=== PATIENT | female | born 1980 | race Caucasian/White ===

== ENCOUNTER 2020-03-09 17:09 | Inpatient (IN) | payer SELFPAY ==
[~2020-03-09] VITALS: Ht 165.1 cm; Wt 113.5 kg
--- NOTE | 2020-03-09 17:42 | EKG ---
[address] [address] Test Date: 2020-03-09 Test Time: 17:36:25 Pat Name: NOVEMBER KAVON Department: Room: Gender: F Owner: : 1980 Requested By: REINIER SAENZ Order Number: [id number] Reading MD: Measurements Intervals [place] Rate: 79 P: 27 NV: 156 QRS: 59 QRSD: 90 T: 60 QT: 364 QTc: 418 Interpretive Statements SINUS RHYTHM NORMAL ECG RI6.02 No previous ECG available for comparison
--- NOTE | 2020-03-09 18:18 | PHYS DOC ---
General Adult EDM: Chief Complaint: Chest pain HPI: HPI: 40-year-old female presents with chest pain. The patient states she has had right-sided chest wall pain for the last 6 days. It first started when she coughed really hard after waking up in the middle the night. Since that time, she has had persistent right upper chest pain that radiates to her right shoulder and sometimes up into her right jaw. She is never had pain like this before. She denies fall, trauma, or overuse. She cannot think of anything that would have caused this pain. It is a deep aching sensation. She went to urgent care 3 days ago and no significant findings time. Presents tonight because she continues to have moderate pain kqfz-adl-ilaciso medications are not helping. She is also feeling very short of breath now and this is concerning for her. No known COVID-19 exposures. She denies diaphoresis. She has a history of diabetes insulin dependent. Denies fever or chills. Review of Systems: Review of Systems: Constitutional: Denies fever or chills Eyes: Denies change in visual acuity HENT: Denies nasal congestion or sore throat Respiratory: shortness of breath Cardiovascular: Right chest wall pain GI: Denies abdominal pain, nausea, vomiting, bloody stools or diarrhea : Denies dysuria Musculoskeletal: Right shoulder pain Integument: Denies rash Neurologic: Denies headache, focal weakness or sensory changes Endocrine: Denies polyuria or polydipsia Lymphatic: Denies swollen glands Psychiatric: Denies depression or anxiety Heart Score: HEART Score for Chest Pain: HEART Score for Chest Pain Response (Comments) Value History Moderately Suspicious 1 ECG Normal 0 Age < 45 0 Risk Factors 1 or 2 Risk Factors 1 Troponin < Normal Limit 0 Total 2 Risk Factors: Risk Factors: DM, Current or recent (<one month) smoker, HTN, HLP, family history of CAD, obesity. Risk Scores: Score 0 - 3: 2.5% MACE over next 6 weeks - Discharge Home Score 4 - 6: 20.3% MACE over next 6 weeks - Admit for Clinical Observation Score 7 - 10: 72.7% MACE over next 6 weeks - Early Invasive Strategies Physical Exam: PE: Constitutional: Well developed, morbidly obese, well nourished, no acute distress, non-toxic appearance. [] HENT: Normocephalic, atraumatic, bilateral external ears normal, oropharynx dry, no oral exudates, nose normal. [] Eyes: PERRLA, EOMI, conjunctiva normal, no discharge. [] Neck: Normal range of motion, no tenderness, supple, no stridor. [] Cardiovascular: Heart rate regular rhythm, no murmur [] Lungs & Thorax: Bilateral breath sounds clear to auscultation. Tenderness with palpation of the right upper lateral chest wall. No skin changes or obvious injury. [] Abdomen: Bowel sounds normal, soft, no tenderness, no masses, no pulsatile masses. [] Skin: Warm, dry, no erythema, no rash. [] Back: No tenderness, no CVA tenderness. [] Extremities: No tenderness, no cyanosis, no clubbing, ROM intact, no edema. [] Neurologic: Alert and oriented X 3, normal motor function, normal sensory function, no focal deficits noted. [] Psychologic: Affect normal, judgement normal, mood normal. [] EKG: EKG: Sinus rhythm, normal axis, no ST elevations or depressions. [] Radiology/Procedures: Radiology/Procedures: [] Impressions: CHEST AP ONLY 03/09/2020 6:03 PM INDICATION: Chest pain COMPARISON: None available TECHNIQUE: Portable frontal view of the chest is provided. FINDINGS: The cardiomediastinal silhouette is within normal limits. Lungs are clear. Right suprahilar opacity most favors prominent vasculature. There are no significant pleural effusions. There is no pulmonary vascular congestion. No pneumothorax. No suspicious osseous abnormality. IMPRESSION: There is no acute cardiopulmonary process. Right suprahilar opacity most favors prominent vasculature. Electronically signed by: Bandar Herring MD (03/09/2020 7:58 PM) [facility] DICTATED AND SIGNED BY: BANDAR HERRING MD DATE: 03/09/201957 CC: KAVON CAREY DO; PCP,NO ~ EXAM: CT Chest without IV contrast INDICATION: Reason: abnormal x-ray, right chest pain / Spl. Instructions: / History: TECHNIQUE: Multi-detector row CT images were acquired from the thoracic inlet through the upper abdomen without the use of IV contrast. Sagittal and coronal images were acquired from the transaxial data. All CT scans performed at this facility utilize dose optimization techniques as appropriate to the exam, including the following: Automated exposure control and adjustment of the mA and/or KV according to patient size (this includes techniques or standardized protocols for targeted exams where dose is indication/reason for exam). COMPARISON: Chest x-ray of 03/09/2020 at 7:19 PM FINDINGS: The absence of IV contrast limits evaluation of soft tissue pathology. CARDIOVASCULAR: Unremarkable MEDIASTINUM & BRANDO: No adenopathy or masses. LUNGS: Right lung interlobular septal thickening is present along with patchy areas of subsegmental atelectasis. PLEURAL SPACE: Small right pleural effusion. No pneumothorax. Minimal atelectatic changes in the medial left costophrenic angle. OSSEOUS & SOFT TISSUE: There is gas between the right pectoralis major and minor muscles superficial to the anterior right second rib. There is associated soft tissue stranding both within the musculature and in the overlying fat. The distal right sternocleidomastoid muscle is asymmetrically thickened. Edema in the right axilla is also present. No acute or aggressive appearing osseous lesions identified. ABDOMEN: The visualized portions of the upper abdomen are unremarkable. IMPRESSION: 1. Gas-forming inflammatory process in the right pectoral musculature, involving the sternocleidomastoid muscle as well. Query myositis or necrotizing fasciitis. Recommend clinical correlation. 2. Asymmetric vascular congestion in the right lung with a small right pleural effusion. Pneumonitis or pneumonia with a small right parapneumonic effusion are differential considerations. FOR INTERNAL CODING PURPOSES Critical result: Findings discussed with KAVON CAREY at 03/09/2020 11:15 PM. RESULT CODE: (C) Course & Med Decision Making: Course & Med Decision Making Pertinent Labs and Imaging studies reviewed. (See chart for details) The patient has an elevated white count. She has other abnormal labs. See labs for more details. Her chest x-ray shows some right upper lobe abnormality thought to be congestion of the vasculature. I spoke with Dr. Brown and he has accepted the patient for admission. It seems very likely that she has an infection, though I am unsure of source. I have covered her with a gram of Rocephin IV. She is willing to be admitted for further management. I have ordered a chest CT without contrast due to her kidney function. [] Jacquie Disclaimer: Jacquie Disclaimer: This electronic medical record was generated, in whole or in part, using a voice recognition dictation system. Departure Departure: Impression: Primary Impression: Elevated serum creatinine Additional Impression: Cellulitis of chest wall Disposition: ADMITTED INPATIENT Admitting Physician: Sushil Brown Condition: STABLE Referrals: PCP,NO (PCP) Justification of Admission: Justification of Admission: Justification of Admission Dx: Yes Comments: chest wall infection, cellulitis KAVON CAREY DO Mar 09, 2020 18:18
[2020-03-09 18:39] LABS: BASO % 0 % (0-3); EOS # 0.1 x10^3/uL (0.0-0.7); EOS % 0 % (0-3); HEMATOCRIT 27.3 % (36.0-47.0); LYMPH # 0.9 x10^3/uL (1.0-4.8); LYMPH % 5 % (24-48); MEAN CORPUSCULAR HEMOGLOBIN 28 pg (25-35); MEAN CORPUSCULAR HGB CONC 33 g/dL (31-37); MEAN CORPUSCULAR VOLUME 83 fL (79-100); MONO % 5 % (0-9); NEUT # 17.1 x10^3uL (1.8-7.7); NEUT % 89 % (31-73); PLATELET COUNT 265 x10^3/uL (140-400); RED BLOOD COUNT 3.27 x10^6/uL (3.50-5.40); RED CELL DISTRIBUTION WIDTH 13.8 % (11.5-14.5); WHITE BLOOD COUNT 19.2 x10^3/uL (4.0-11.0)
[2020-03-09 18:45] LABS: CALCIUM 8.5 mg/dL (8.5-10.1); CREATININE 1.8 mg/dL (0.6-1.0); GFR 31.3; POTASSIUM 4.3 mmol/L (3.5-5.1)
[2020-03-09] MEDS ORDERED: HYDROcodone/APAP 5/325MG 1 TAB TABLET PO ONE ×2 (18:45→23:45)
[2020-03-09 18:51] LABS: ALBUMIN 2.3 g/dL (3.4-5.0); ALBUMIN/GLOBULIN RATIO 0.5 (1.0-1.7); TOTAL BILIRUBIN 0.4 mg/dL (0.2-1.0); TOTAL PROTEIN 7.1 g/dL (6.4-8.2)
[2020-03-09 18:55] LABS: % BANDS 7 % (0-9); % LYMPHS 2 % (24-48); % MONOS 5 % (0-10); % SEGS 86 % (35-66)
[2020-03-09 18:57] LABS: PLT ESTIMATE ADEQUATE (ADEQUATE); POLYCHROMASIA SLIGHT; TOXIC GRANULATION PRESENT; TOXIC VACUOLATION PRESENT
[2020-03-09] MEDS ORDERED: IV NORMAL SALINE 1,000ML 1,000 ML IV ONE (19:15)
--- NOTE | 2020-03-09 20:01 | RAD ---
CHEST AP ONLY 03/09/2020 6:03 PM INDICATION: Chest pain COMPARISON: None available TECHNIQUE: Portable frontal view of the chest is provided. FINDINGS: The cardiomediastinal silhouette is within normal limits. Lungs are clear. Right suprahilar opacity most favors prominent vasculature. There are no significant pleural effusions. There is no pulmonary vascular congestion. No pneumothorax. No suspicious osseous abnormality. IMPRESSION: There is no acute cardiopulmonary process. Right suprahilar opacity most favors prominent vasculature. Electronically signed by: Bri Herring MD (03/09/2020 7:58 PM) [facility]
[2020-03-09 20:43] LABS: BACTERIA,URINE 0 /HPF (0-FEW); BILIRUBIN,URINE NEG (NEG); CLARITY,URINE HAZY; COLOR,URINE YELLOW; GLUCOSE,URINE NEG (NEG); NITRITE,URINE NEG (NEG); RBC,URINE OCC /HPF (0-2); SQUAMOUS EPITHELIAL CELL,UR MOD /LPF
[2020-03-09] MEDS ORDERED: cefTRIAXone SODIUM 1 GM VIAL ONE (22:28)
[2020-03-09] MEDS ORDERED: IV NORMAL SALINE 50ML 50 ML ONE (22:28)
[2020-03-09] MEDS ORDERED: CONTRAST GIVEN MC PRN (22:30)
[2020-03-09] MEDS ORDERED: IOHEXOL 300 MG/ML 75 ML VIAL. IV ONE (23:00)
--- NOTE | 2020-03-09 23:19 | RAD ---
EXAM: CT Chest without IV contrast INDICATION: Reason: abnormal x-ray, right chest pain / Spl. Instructions: / History: TECHNIQUE: Multi-detector row CT images were acquired from the thoracic inlet through the upper abdomen without the use of IV contrast. Sagittal and coronal images were acquired from the transaxial data. All CT scans performed at this facility utilize dose optimization techniques as appropriate to the exam, including the following: Automated exposure control and adjustment of the mA and/or KV according to patient size (this includes techniques or standardized protocols for targeted exams where dose is indication/reason for exam). COMPARISON: Chest x-ray of 03/09/2020 at 7:19 PM FINDINGS: The absence of IV contrast limits evaluation of soft tissue pathology. CARDIOVASCULAR: Unremarkable MEDIASTINUM & BRANDO: No adenopathy or masses. LUNGS: Right lung interlobular septal thickening is present along with patchy areas of subsegmental atelectasis. PLEURAL SPACE: Small right pleural effusion. No pneumothorax. Minimal atelectatic changes in the medial left costophrenic angle. OSSEOUS & SOFT TISSUE: There is gas between the right pectoralis major and minor muscles superficial to the anterior right second rib. There is associated soft tissue stranding both within the musculature and in the overlying fat. The distal right sternocleidomastoid muscle is asymmetrically thickened. Edema in the right axilla is also present. No acute or aggressive appearing osseous lesions identified. ABDOMEN: The visualized portions of the upper abdomen are unremarkable. IMPRESSION: 1. Gas-forming inflammatory process in the right pectoral musculature, involving the sternocleidomastoid muscle as well. Query myositis or necrotizing fasciitis. Recommend clinical correlation. 2. Asymmetric vascular congestion in the right lung with a small right pleural effusion. Pneumonitis or pneumonia with a small right parapneumonic effusion are differential considerations. FOR INTERNAL CODING PURPOSES Critical result: Findings discussed with KAVON CAREY at 03/09/2020 11:15 PM. RESULT CODE: (C) Electronically signed by: Myron Aguilar MD (03/09/2020 11:15 PM) [facility] [place]
[2020-03-09] MEDS ORDERED: MORPHINE SULFATE 2 MG/ML DISP.SYRIN. IVP PRN (23:45)
[2020-03-09] MEDS ORDERED: ONDANSETRON PF 4 MG/2 ML VIAL. IVP PRN (23:45)
[2020-03-10 00:39] VITALS: BP 154/81
--- NOTE | 2020-03-10 01:29 | NUR ---
The patient, , 40 y/o, F admitted by WAYNE ZAIDI MD, was given written information regarding hospital policies, unit procedures and contact persons. Valuables were checked and . Pt pleasant and cooperative. VSS she is having pain of rt chest which meds given in the ER relieved somewhat. Wounds on bilateral heels photographed and redressed with form dressings.
[2020-03-10] MEDS ORDERED: SULF1TAB24 PO (02:28)
[2020-03-10] MEDS ORDERED: METO100T7 PO (02:28)
[2020-03-10] MEDS ORDERED: AMLO10TA8 PO (02:40)
[2020-03-10] MEDS ORDERED: NPH,100V5 SQ (02:40)
[2020-03-10] MEDS ORDERED: SITA1TAB11 PO (02:40)
[2020-03-10] MEDS ORDERED: LEVO150T PO (02:40)
[2020-03-10] MEDS ORDERED: IBUP800T19 PO (02:40)
[2020-03-10] MEDS ORDERED: LORA10TA55 PO (02:40)
[2020-03-10] MEDS ORDERED: LISI40TA PO (02:40)
[2020-03-10] MEDS ORDERED: LOPE1LIQ7 PO (02:40)
[2020-03-10] MEDS ORDERED: INSU100V11 IJ (02:40)
[2020-03-10] MEDS: MORPHINE SULFATE 4 MG/ML DISP.SYRIN. IV PRN ×4 (02:55→17:12)
--- NOTE | 2020-03-10 03:00 | NUR ---
PRN MS [address] Brown was informed of pts pain and order received.
--- NOTE | 2020-03-10 03:30 | NUR ---
Pt resting quietly now, appears to be asleep.
[2020-03-10 06:15] VITALS: BP 166/93
[2020-03-10] MEDS ORDERED: LOPERAMIDE 2 MG/15 ML ORAL SUSP. PO PRN (08:30)
[2020-03-10 08:44] LABS: HEMATOCRIT 25.3 % (36.0-47.0); HEMOGLOBIN 8.4 g/dL (12.0-15.5); RED BLOOD COUNT 3.02 x10^6/uL (3.50-5.40); RED CELL DISTRIBUTION WIDTH 14.1 % (11.5-14.5); WHITE BLOOD COUNT 18.8 x10^3/uL (4.0-11.0)
[2020-03-10] MEDS ORDERED: VANCOMYCIN PER PHARMACY MC PRN (08:45)
[2020-03-10] MEDS ORDERED: IBUPROFEN 800 MG TABLET. PO PRN (08:45)
[2020-03-10 08:46] LABS: CREATININE 1.7 mg/dL (0.6-1.0); GFR 33.5; POTASSIUM 4.3 mmol/L (3.5-5.1)
[2020-03-10] MEDS ORDERED: NON FORMULARY ITEM (Sitagliptin Phos/Metformin Hcl (Janumet 50-1,000 Mg Tablet) 1 EACH) PO SCH (09:00)
[2020-03-10] MEDS ORDERED: METOPROLOL TART IMMED RELEASE 50 MG TABLET PO SCH (09:00)
[2020-03-10] MEDS ORDERED: SMX/TMP 800/160MG 2TABLET STARTPACK. PO SCH (09:00)
[2020-03-10 09:15] LABS: CALCIUM 8.4 mg/dL (8.5-10.1)
[2020-03-10] MEDS ORDERED: LISINOPRIL 20 MG TABLET PO SCH (09:30)
[2020-03-10] MEDS ORDERED: LINAGLIPTIN 5 MG TABLET PO SCH (09:30)
[2020-03-10] MEDS ORDERED: CETIRIZINE HCL 10 MG TABLET PO SCH (09:30)
[2020-03-10] MEDS ORDERED: VANCOMYCIN 2 GM in IV NORMAL SALINE 500ML 500 ML IV ONE (09:45)
[2020-03-10] MEDS ORDERED: PIPERACILLIN/TAZOBACTAM 3.375 GM in IV NORMAL SALINE 50ML 50 ML IV SCH (09:45)
[2020-03-10] MEDS: INSULIN REGULAR 100 UNIT/ML 3ML VIAL. SQ SCH ×3 (10:04→17:11)
--- NOTE | 2020-03-10 13:08 | NUR ---
Pharmacy Vancomycin Dosing Note S:Consulted to monitor and dose vancomycin started 03/10/20. O:KAVONNOVEMBER A is a 40 year old F with chest wall infection/empiric antibiotics. Height: 5 feet, 5 inches Weight: 113.5 kg Dosing Weight: Actual Other Antibiotics: 3.375 MG ZOSYN Q6HRS 1 DOSE OF CEFTRIAXONE IN ER. PT WAS ON BACTRIM DS OUTPT FOR UTI. LABS: Last BUN: 32 Last Creatinine: 1.7 Creatinine Clearance: 55.8 Last WBC: 18.8 Microbiology: pending Vancomycin Dosing: Loading Dose: 2000 mg x1 Dosing Weight: Actual Target Trough: 15-20 A: Pt has infection of unclear source, likely in chest wall with poor kidney function that is improving. P: 1. Vancomycin 1750 mg IV q24h 2. Follow up Trough level on 03/12/20 at 1030 3. Pharmacy will continue to monitor, follow and adjust therapy as needed. KIKE RUCKER, 03/10/20 [id number]
[2020-03-10 13:53] LABS: CALCIUM 8.1 mg/dL (8.5-10.1); CREATININE 1.8 mg/dL (0.6-1.0); GFR 31.3; POTASSIUM 4.4 mmol/L (3.5-5.1)
--- NOTE | 2020-03-10 14:45 | SSS ---
ADMIT DATE: 03/10/2020 HISTORY OF PRESENT ILLNESS: The patient is a 40-year-old female patient who came to the Emergency Room complaining that she has right-sided chest wall pain for the last 6 days. It started when she coughed really hard after waking up in the middle of the night and since that time, she has had persistent right upper chest pain that radiates to her right neck, shoulder and sometimes into her right jaw. She has never had any pain like this before. She denies any fall, trauma or overuse. She cannot think of anything that would have caused this pain. It was a deep aching sensation. She went to an urgent care 3 days ago and no significant finding at that time. She presented to the Emergency Room of [facility] with moderate pain that wqni-mwv-gmpkuww medications are not helping. She also has feeling that she is very short of breath now and this is concerning for her. She has no known COVID-19 exposure. She denied any diaphoresis. She has multiple medical problems. She was extensively investigated in the Emergency Room. Her lab work showed a white cell count of 19,000, hemoglobin 9, hematocrit 27 with normal platelet count. Her chemistry showed that she has hyponatremia and impaired kidney function. Her CT scan of the chest showed that the patient has gas forming inflammatory process in the right pectoral musculature involving the sternocleidomastoid muscle as well as questionable myositis or necrotizing fasciitis. She has a symmetric vascular congestion in the right lung with a small right pleural effusion. Pneumonitis or pneumonia with a small right side parapneumonic effusion are differential consideration. The patient was given a gram of Rocephin and was admitted for further evaluation and treatment. I did actually change her antibiotic coverage to vancomycin as well as Zosyn and contacted the nursing [employer]ending enterprises supervisor at [facility] to arrange for her to be transferred there to consult the Infectious Disease specialist as well as the surgical team and perhaps also the psych assistant. 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 She apparently has diabetic retinopathy, nephropathy and neuropathy. She is known to have hypertension, hyperlipidemia, hypothyroidism, polycystic ovary syndrome and bronchial asthma, although she has outgrown it. PAST SURGICAL HISTORY: Significant for back surgery at L4, L5, S1 with screws and rods. 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 ALLERGIES: She has no known drug allergies. MEDICATIONS: She is currently on the following medications: She is on loratadine 10 mg once a day. She is on metoprolol tartrate 100 mg twice a day, amlodipine 10 mg once a day, lisinopril 40 mg once a day, ibuprofen 800 mg every 8 hours, loperamide 1 mg every 4 hours as needed, sitagliptin/metformin, Janumet one tablet once a day. She is on Regular insulin 46 units at bedtime and Novolin N 22 units before meals, levothyroxine sodium for Synthroid 150 mcg once a day. FAMILY HISTORY: She has 2 older brothers. Her older brother has alcoholic liver cirrhosis, second brother is healthy. Her father is still alive at the age of 72 and is known to have COPD. Her mother at age of 55 secondary to lung cancer. SOCIAL HISTORY: She is single, never , has no children. She never smoked, does not drink alcohol or use any recreational drugs. She is currently unemployed. REVIEW OF SYSTEMS: The patient does have what seemed to be diabetic retinopathy, but denied any cataract or glaucoma. Denied any earache, tinnitus or sensorineural deafness. Denied any nosebleeds, stuffy nose or postnasal drip. Denied any sore throat, sore tongue, toothache, hoarseness of voice or difficulty swallowing. Denied any nausea, vomiting, diarrhea or constipation. Denied any hematemesis, melena, or hematochezia. Denied any dysuria, frequency or hematuria. He did obviously complain of chest pain on the right side of the chest, but denied any orthopnea or paroxysmal nocturnal dyspnea. Denied any chills, rigors, or fever. Denied any dizziness, lightheadedness, or vertigo. PHYSICAL EXAMINATION: GENERAL: On arrival to the Emergency Room, she was clearly slightly tachypneic, pale. Not jaundiced, cyanosis or thyromegaly. No jugular venous distension. No limb edema. VITAL SIGNS: Her heart rate was 90, blood pressure 168/87, her temperature was 99.7, respiratory rate was 24, and oxygen saturation was 98% on room air. HEAD, EYES, EARS, NOSE AND THROAT: Showed normocephalic, atraumatic. NECK: Supple. HEART: Showed normal first and second heart sounds. No gallop, rub or murmur. CHEST: Showed central trachea, equal bilateral expansion, air entry, vesicular sounds. No crepitation or rhonchi. She has marked tenderness on the right side of the chest wall in the right infraclavicular area, right shoulder and right-sided neck. ABDOMEN: Distended, soft, nontender. No guarding or rigidity. No organomegaly. All hernial orifice intact. Bowel sounds normal. NEUROLOGIC: She is awake, alert, responding appropriately. All her cranial nerves are intact. EXTREMITIES: She moves extremities without difficulty. LABORATORY DATA: Her lab work on arrival showed a white cell count of 19,000, hemoglobin 9, hematocrit 27, MCV 83 and platelet count of 265,000 with normal manual differential. Her chemistry showed serum sodium of 129, potassium 4.3, chloride 97, bicarbonate 20, anion gap of 12, BUN 35, creatinine 1.8, estimated GFR was 31 mL per minute. Her glucose 151. Lactic acid was only 1.2, calcium was 8.5. Total bilirubin, AST, ALT were normal. Alkaline phosphatase was elevated. Her total protein was 7.1, albumin was 2.3. Her urinalysis showed the urine was yellow, hazy with a pH of 5.5, specific gravity of 1.015. The urine was negative for protein, glucose, ketones, blood, nitrite and leukocyte esterase, and 5-10 wbc's and very few bacteria. Her chest x-ray showed there is no acute cardiopulmonary process. Right suprahilar opacity, ____ prominent vasculature; however, CT scan of the chest without contrast showed that the mediastinum and sukhdeep showed no adenopathy or masses. Lungs, right lung interlobular septal thickening is present along with patchy areas of subsegmental atelectasis. Pleural space, she has small right sided pleural effusion, no pneumothorax. Minimal atelectatic changes in the medial left costophrenic angle. Osseous and soft tissue, there is gas between the right pectoralis major and minor muscles, superficial to the anterior right second rib. There is associated soft tissue stranding both within the musculature and overlying fat. The distal right sternoclavicular muscle is symmetrically thickened. Edema in the right axilla is also present. No acute or aggressive appearing osseous lesion identified. The visualized portion of the upper abdomen are unremarkable with the impression that the patient has gas forming inflammatory process in the right pectoral musculature involving the sternocleidomastoid muscle as well with questionable myositis versus necrotizing fasciitis. She does have also a symmetric vascular congestion in the right lung with a small right pleural effusion. Pneumonitis or pneumonia with a small right-sided parapneumonic effusion are differential consideration. I did change her antibiotic to vancomycin and Zosyn as the possibility of necrotizing fasciitis was raised by the radiologist report. The patient has multiple other medical problems including: A. Type 2 diabetes mellitus. B. Hypertension. C. Hyperlipidemia. D. Hypothyroidism. E. Polycystic ovary syndrome. She also has hyponatremia and acute on chronic kidney injury versus chronic kidney injury. My plan is to obviously discontinue her metformin and hold her lisinopril and discontinue the ibuprofen given her impaired kidney function. We will transfer the patient to [facility] for further evaluation and to consult the Infectious Disease specialist, the surgical team as well as the psych assistant. WAYNE ZAIDI MD DR: ROBBIE/vicky JOB#: [id number] / [id number]
[2020-03-10 15:27] VITALS: BP 169/76
[2020-03-10] MEDS ORDERED: PIPERACILLIN/TAZOBACTAM 2.25 GM in IV NORMAL SALINE 50ML 50 ML IV SCH (15:45)
[2020-03-10 19:14] VITALS: BP 185/99
[2020-03-10] MEDS ORDERED: amLODIPine BESYLATE 10 MG TABLET PO SCH (21:00)
[2020-03-10] MEDS ORDERED: INSULIN GLARGINE SYRINGE. SQ SCH (21:00)
--- NOTE | 2020-03-10 22:06 | NUR ---
pt was transferred [place] [facility] [place] [facility] at 1740. pts vitals 185/99, 92 pulse, 20 resp, temp 101.0, o2 sat 92% or 2 Liters. pt was lying comfortably in bed before EMS arrived on floor. pt received morphine 2 hrs before transfer was not ellagab Addendum: 03/10/20 at 4304 by CALLI MENDOZA RN RN pt transfer to [facility] via [facility] eligible for another dose of morphine. All paperwork and pts belonging went with pt to [facility].
[2020-03-11] MEDS ORDERED: LEVOTHYROXINE 150 MCG TABLET PO SCH (07:30)
[2020-03-11] MEDS ORDERED: metFORMIN 500 MG TABLET PO SCH (09:00)
[2020-03-11] MEDS ORDERED: VANCOMYCIN 1.75 GM in IV NORMAL SALINE 500ML 500 ML IV SCH (11:00)
== END 2020-03-10 19:40 | disposition short-term general hospital (02) | DRG 682 ==
LOC: ER 17:09 → 1 SOUTH 03-10 00:18
PROVIDERS: ADMIT Internal Medicine; ATTEND Internal Medicine
DX: N17.9 Acute kidney failure, unspecified (principal); J18.9 Pneumonia, unspecified organism; M72.6 Necrotizing fasciitis; L03.313 Cellulitis of chest wall; E87.1 Hypo-osmolality and hyponatremia; J91.8 Pleural effusion in other conditions classified elsewhere; E03.9 Hypothyroidism, unspecified; E11.22 Type 2 diabetes mellitus with diabetic chronic kidney disease; E11.21 Type 2 diabetes mellitus with diabetic nephropathy; I12.9 Hypertensive chronic kidney disease with stage 1 through stage 4 chronic kidney disease, or unspecified chronic kidney disease; N18.9 Chronic kidney disease, unspecified; E78.5 Hyperlipidemia, unspecified; Z20.828 Contact with and (suspected) exposure to other viral communicable diseases; J45.909 Unspecified asthma, uncomplicated; Z56.0 Unemployment, unspecified; Z79.4 Long term (current) use of insulin; Z80.1 Family history of malignant neoplasm of trachea, bronchus and lung; Z82.5 Family history of asthma and other chronic lower respiratory diseases
CPT/HCPCS: 36415; 71045; 71250; 80048; 80053; 81001; 83605; 84484; 84702; 85007; 85025; 85027; 87040; 87086; 93005; J0696; J1815; J2270; J2543; J3370; J7040; J7030; U0003-CS

== ENCOUNTER 2020-09-19 13:57 | Emergency (ER) | payer MEDICARE, OTHER ==
[~2020-09-19] VITALS: Ht 165.1 cm; Wt 113.6 kg
[~2020-09-19 13:57] MED LIST: AMLO-187 PO; IBUP800T19 PO; INSU100V11 IJ; LEVO150T PO; LISI40TA6 PO; LOPE1LIQ7 PO; LORA-52 PO; METO100T7 PO; NPH,100V5 SQ; SITA1TAB11 PO; SULF1TAB24 PO
[2020-09-19] MEDS ORDERED: ONDANSETRON PF 4 MG/2 ML VIAL. IVP ONE (14:30)
[2020-09-19] MEDS ORDERED: IV NORMAL SALINE 1,000ML 1,000 ML IV ONE (14:30)
[2020-09-19] MEDS ORDERED: FAMOTIDINE 20 MG/2 ML VIAL IVP ONE (14:30)
--- NOTE | 2020-09-19 14:40 | PHYS DOC ---
Past History Past Medical History: Diabetes, High Cholesterol, Hypertension, Hypothyroid, Pneumonia, URI, Other Additional Past Medical Histor: PCOS, chronic back pain (FRANCISCO GUTIERREZ APRN) Past Surgical History: Other Additional Past Surgical Histo: back surg L4 L5 S1. Left foot toe amp, right leg MRSA infection SX, Past Surgical History bilateral heel ulcers (FRANCISCO GUTIERREZ APRN) Smoking: Non-smoker Alcohol Use: None Drug Use: None ( ) (FRANCISCO GUTIERREZ APRN) General Adult EDM: Chief Complaint: ABDOMINAL PAIN HPI: HPI: Patient is a 40-year-old female with extensive medical history that presents to the emergency room with complaints of nausea, vomiting, and upper abdominal pain for the last 24 hours. Patient states she has vomited at least 10 times, she denies any blood in her emesis. She denies any known COVID-19 exposure. The patient states she has not been checking her blood sugar or taking her diabetes medication with the vomiting. She denies any diarrhea, chest pain, palpitations, fever, cough, body aches, fatigue, shortness of breath, dysuria, hematuria, or increased urinary frequency. Patient reports that the abdominal pain does not radiate through to her back. Patient currently rates her pain a 10 out of 10 on the pain scale, she denies any alleviating or exacerbating factors, she reports that the pain is worse with palpation and vomiting. (FRANCISCO GUTIERREZ APRN) Review of Systems: Review of Systems: Complete ROS is negative unless otherwise noted in HPI. (FRANCISCO GUTIERREZ APRN) Current Medications: Current Meds: Current Medications Medications (Trade) Dose Ordered Sig/Mahendra Start Time Stop Time Status Last Admin Dose Admin Famotidine (Pepcid Vial) 20 mg 1X ONCE 09/19/20 14:30 09/19/20 14:31 DC Fentanyl Citrate (Fentanyl 2ml Vial) 50 mcg 1X ONCE 09/19/20 14:30 09/19/20 14:31 DC Ondansetron HCl (Zofran) 4 mg 1X ONCE 09/19/20 14:30 09/19/20 14:31 DC Sodium Chloride 1,000 ml @ 1,000 mls/hr 1X ONCE 09/19/20 14:30 09/19/20 15:29 (FRANCISCO GUTIERREZ APRN) Allergies: Allergies: Allergies Coded Allergies Type Severity Reaction Last Updated Verified No Known Drug Allergies 09/19/20 No (FRANCISCO GUTIERREZ APRN) Physical Exam: PE: See Above Constitutional: Well developed, well nourished, no acute distress, non-toxic appearance, obese. [] HENT: Normocephalic, atraumatic, bilateral external ears normal, nose normal. [] Eyes: PERRLA, EOMI, conjunctiva normal, no discharge. [] Neck: Normal range of motion, no stridor. [] Cardiovascular:Heart rate regular rhythm Lungs & Thorax: Respirations even and unlabored, no retractions, no respiratory distress Abdomen: soft, right upper quadrant and epigastric tenderness to palpation, no rebound tenderness, no guarding, no palpable mass, abdomen is otherwise soft and nontender Skin: Warm, dry, no erythema, no rash. [] Extremities: No cyanosis, ROM intact, no edema. [] Neurologic: Alert and oriented X 3, no focal deficits noted. [] Psychologic: Affect normal, judgement normal, mood normal. [] (FRANCISCO GUTIERREZ APRN) Current Patient Data: Labs: Laboratory Tests Test 09/19/20 14:24 Glucose (Fingerstick) 347 mg/dL (70-99) H Vital Signs: Vital Signs Date Time Temp Pulse Resp B/P (MAP) Pulse Ox O2 Delivery O2 Flow Rate FiO2 09/19/20 14:14 97.8 114 121/77 (92) 97 (FRANCISCO GUTIERREZ APRN) EKG: EKG: [] (FRANCISCO GUTIERREZ APRN) Radiology/Procedures: Radiology/Procedures: PROCEDURE: ABDOMEN LTD Exam performed: Right upper quadrant abdominal pain. HISTORY: Right upper quadrant epigastric pain. DATE OF SERVICE: 09/19/2020. COMPARISON: CT chest from March 09, 2020 TECHNIQUE: Real-time grayscale imaging of the right upper abdomen is performed and images are obtained. FINDINGS: The study is very limited due to patient's large body habitus and limited scanning due to extreme pain. Diffuse hepatic steatosis. The gallbladder is markedly distended containing calculi. Pericholecystic fluid and positive sonographic Partida's sign is present. The pancreas, right kidney, IVC and aorta are poorly visualized due to overlying bowel gas. IMPRESSION: Limited exam. Cholelithiasis with sonographic findings consistent with acute cholecystitis. [] (FRANCISCO GUTIERREZ APRN) Heart Score: Risk Factors: Risk Factors: DM, Current or recent (<one month) smoker, HTN, HLP, family history of CAD, obesity. Risk Scores: Score 0 - 3: 2.5% MACE over next 6 weeks - Discharge Home Score 4 - 6: 20.3% MACE over next 6 weeks - Admit for Clinical Observation Score 7 - 10: 72.7% MACE over next 6 weeks - Early Invasive Strategies (FRANCISCO GUTIERREZ APRN) Course & Med Decision Making: Course & Med Decision Making Pertinent Labs and Imaging studies reviewed. (See chart for details) 1601- I spoke with Dr. Brown and informed of patient that needs to be tx to [facility] for acute cholecystitis. Labs and US results discussed. Advised of medications given, Dr. Kaur has been paged for surgery. Dr. Brown will admit pt to [facility]. 1602- I spoke with Dr. Kaur and advised of pt transfer with acute cholecystitis, informed that Dr. Brown is accepting physician. [] (FRANCISCO GUTIERREZ APRN) Dragon Disclaimer: Dragon Disclaimer: This electronic medical record was generated, in whole or in part, using a voice recognition dictation system. (FRANCISCO GUTIERREZ APRN) Departure Departure: Impression: Primary Impression: Acute cholecystitis Disposition: 02 DC/TRF OTHER SHORT TERM HOS Condition: STABLE Referrals: NON,STAFF (PCP) Attending Signature Attending Signature I have reviewed the PA/FILE SYSTEM INSTALLER's note and plan of care. I was available for consultation as needed during the patient's visit in the emergency department. I agree with the clinical impression, plan, and disposition. (REINIER SAENZ DO) FRANCISCO GUTIERREZ APRN Sep 19, 2020 14:40 REINIER SAENZ DO Sep 19, 2020 23:09
[2020-09-19 15:17] LABS: BASO % 0 % (0-3); EOS % 0 % (0-3); HEMATOCRIT 35.6 % (36.0-47.0); HEMOGLOBIN 11.8 g/dL (12.0-15.5); LYMPH # 0.9 x10^3/uL (1.0-4.8); LYMPH % 5 % (24-48); MEAN CORPUSCULAR HEMOGLOBIN 27 pg (25-35); MEAN CORPUSCULAR HGB CONC 33 g/dL (31-37); MEAN CORPUSCULAR VOLUME 81 fL (79-100); MONO # 1.1 x10^3/uL (0.0-1.1); MONO % 6 % (0-9); NEUT # 17.5 x10^3uL (1.8-7.7); NEUT % 90 % (31-73); PLATELET COUNT 284 x10^3/uL (140-400); RED CELL DISTRIBUTION WIDTH 14.8 % (11.5-14.5); WHITE BLOOD COUNT 19.5 x10^3/uL (4.0-11.0)
[2020-09-19 15:30] LABS: CALCIUM 9.3 mg/dL (8.5-10.1); CREATININE 1.4 mg/dL (0.6-1.0); GFR 41.9; POTASSIUM 4.6 mmol/L (3.5-5.1)
[2020-09-19] MEDS ORDERED: HYDROmorphone PF 1 MG/ML DISP.SYRIN IVP ONE ×2 (15:30→16:15)
[2020-09-19 15:37] LABS: ALBUMIN 3.2 g/dL (3.4-5.0); ALBUMIN/GLOBULIN RATIO 0.6 (1.0-1.7); TOTAL BILIRUBIN 0.8 mg/dL (0.2-1.0); TOTAL PROTEIN 8.3 g/dL (6.4-8.2)
[2020-09-19] MEDS ORDERED: HYDROmorphone PF 2 MG/ML VIAL ONE (15:41)
[2020-09-19] MEDS ORDERED: PIPERACILLIN/TAZOBACTAM 3.375 GM in IV NORMAL SALINE 50ML 50 ML IV ONE (15:45)
--- NOTE | 2020-09-19 15:50 | RAD ---
Exam performed: Right upper quadrant abdominal pain. HISTORY: Right upper quadrant epigastric pain. DATE OF SERVICE: 09/19/2020. COMPARISON: CT chest from March 09, 2020 TECHNIQUE: Real-time grayscale imaging of the right upper abdomen is performed and images are obtained. FINDINGS: The study is very limited due to patient's large body habitus and limited scanning due to extreme amari n. Diffuse hepatic steatosis. The gallbladder is markedly distended containing calculi. Pericholecystic fluid and positive sonographic Partida's sign is present. The pancreas, right kidney, IVC and aorta ar e poorly visualized due to overlying bowel gas. IMPRESSION: Limited exam. Cholelithiasis with sonographic findings consistent with acute cholecystitis. Electronically signed by: Sobeida Pandya MD (09/19/2020 3:48 PM) [id number]
[2020-09-19] MEDS ORDERED: IV NORMAL SALINE 50ML 50 ML ONE (16:23)
[2020-09-19] MEDS ORDERED: PIPERACILLIN/TAZOBACTAM 3.375 GM VIAL IV ONE (16:23)
[2020-09-19 16:54] LABS: PREG TEST PT QUAL NEGATIVE (NEG)
[2020-09-19 17:35] LABS: % BANDS 3 % (0-9); % LYMPHS 2 % (24-48); % MONOS 4 % (0-10); % SEGS 91 % (35-66); PLT ESTIMATE ADEQUATE (ADEQUATE); TOXIC GRANULATION MOD
[2020-09-19 18:26] VITALS: BP 166/92
--- NOTE | 2020-09-23 09:52 | NUR ---
IP: notified IP at [facility] of COVID result.
== END 2020-09-19 18:27 | disposition short-term general hospital (02) ==
LOC: ER 13:57
DX: K81.0 Acute cholecystitis (principal); R11.2 Nausea with vomiting, unspecified; E11.9 Type 2 diabetes mellitus without complications; E78.00 Pure hypercholesterolemia, unspecified; I10 Essential (primary) hypertension; E03.9 Hypothyroidism, unspecified; G89.29 Other chronic pain; E28.2 Polycystic ovarian syndrome; Z20.822 Contact with and (suspected) exposure to COVID-19
CPT/HCPCS: 36415; 76705; 80053; 82947; 83690; 83735; 84703; 85007; 85025; 87426; 96361; 96365; 96375; 96376; 99285; C9803; J1170; J2405; J2543; J3010; J3490; J7030; U0003

== ENCOUNTER 2021-11-05 16:52 | Emergency (ER) | payer MEDICARE, OTHER ==
[~2021-11-05] VITALS: Ht 165.1 cm; Wt 113.6 kg
[2021-11-05] MEDS ORDERED: IV NORMAL SALINE 1,000ML 1,000 ML IV SCH (17:15)
--- NOTE | 2021-11-05 17:21 | PHYS DOC ---
Past History Past Medical History: Diabetes, High Cholesterol, Hypertension, Hypothyroid, Pneumonia, URI, Other Additional Past Medical Histor: PCOS, chronic back pain (AVI VANCE APRN) Past Surgical History: Other Additional Past Surgical Histo: back surg L4 L5 S1. Left foot toe amp, right leg MRSA infection SX, (AVI VANCE APRN) Smoking: Non-smoker Alcohol Use: None Drug Use: None (AVI VANCE APRN) General Adult EDM: Chief Complaint: FOOT INJURY PAIN HPI: HPI: Patient is a 41-year-old female who presents to the emergency department for diabetic ulcer to her right foot. She reports that it started out as a blister 3 weeks weeks ago and has gotten worse over the last week. Patient reports a history of diabetic ulcers and has had a toe amputated on her left foot. She reports she has a history of group B strep infection in her wounds. She reports that her diabetes is well controlled her last A1c was 5.4. Patient denies any fevers, nausea, vomiting, chest pain. She is reporting body aches, fatigue and feels short of breath. She rates her pain 4 out of 10. No treatment prior to arrival. (AVI VANCE APRN) Review of Systems: Review of Systems: Constitutional: See HPI Respiratory: See HPI Cardiovascular: See HPI GI: See HPI Musculoskeletal: See HPI Integument: See HPI Neurologic: Reports a history of neuropathy (AVI VANCE APRN) Current Medications: Current Meds: Current Medications Medications (Trade) Dose Ordered Sig/Mahendra Start Time Stop Time Status Last Admin Dose Admin Sodium Chloride 1,000 ml @ 1,000 mls/hr Q1H 11/05/21 17:15 11/05/21 18:14 UNV (AVI VANCE APRN) Allergies: Allergies: Allergies Coded Allergies Type Severity Reaction Last Updated Verified No Known Drug Allergies 09/19/20 No (AVI VANCE APRN) Physical Exam: PE: Constitutional: Well developed, well nourished, no acute distress, non-toxic appearance. [] HENT: Normocephalic, atraumatic, bilateral external ears normal, oropharynx moist, no oral exudates, nose normal. [] Eyes: PERRL, EOMI, conjunctiva normal, no discharge. [] Neck: Normal range of motion, no tenderness, supple, no stridor. [] Cardiovascular:Heart rate regular rhythm, no murmur [] Lungs & Thorax: Bilateral breath sounds clear to auscultation [] Abdomen: Bowel sounds normal, soft, no tenderness, no masses, no pulsatile masses. [] Skin: Warm, dry, no erythema, no rash. [] Back: Normal range of motion Extremities: No tenderness, no cyanosis, no clubbing, ROM intact, no edema. [] Right foot: 4 cm circular necrotic diabetic foot ulcer with erythema and warmth noted to right dorsal plantar aspect of foot proximal to fifth toe with small amount of skin sloughing, foul odor, neuro intact, range of motion intact, grade2-3 Neurologic: Alert and oriented X 3, normal motor function, normal sensory function, no focal deficits noted. [] Psychologic: Affect normal, judgement normal, mood normal. [] (AVI VANCE APRN) Current Patient Data: Vital Signs: Vital Signs Date Time Temp Pulse Resp B/P (MAP) Pulse Ox O2 Delivery O2 Flow Rate FiO2 11/05/21 17:01 97.7 110 16 141/72 (95) 100 Room Air (AVI VANCE APRN) EKG: EKG: [] (AVI VANCE APRN) Radiology/Procedures: Radiology/Procedures: []PROCEDURE: FOOT RIGHT 3V Exam: Right foot 3 views INDICATION: Diabetic ulcer TECHNIQUE: Frontal, lateral and oblique views of the right foot Comparisons: None FINDINGS: Diffuse osteopenia. Diffuse soft tissue swelling particularly at the fifth digit. No acute or healed fractures. Joint spaces are well-maintained. IMPRESSION: Soft tissue swelling at the likely at the fifth digit without underlying osseous abnormality identified. Electronically signed by: Aleida Chan MD (11/05/2021 5:29 PM) [facility] DICTATED AND SIGNED BY: ALEIDA CHAN MD DATE: 11/05/211724 CC: AVI VANCE APRN; NON,STAFF ~ DURE: PORTABLE CHEST 1V EXAMINATION: XR CHEST 1V CLINICAL HISTORY: Shortness of breath. EXAM DATE/TIME: 11/05/2021 5:33 PM COMPARISON: 03/09/2020 FINDINGS: Lines, Tubes, and Devices: None. Cardiomediastinal Silhouette: Within normal limits. Lungs and Pleura: Pulmonary hypoexpansion without evidence of focal airspace consolidation or pleural effusion. Pulmonary vasculature unremarkable. Bones and Soft Tissues: Degenerative changes in the thoracic spine. IMPRESSION: No evidence of acute cardiopulmonary abnormality. Electronically signed by: Prashant Kerns DO (11/05/2021 5:35 PM) [facility] DICTATED AND SIGNED BY: PRASHANT KERNS DO DATE: 11/05/211733 CC: AVI VANCE APRN; NON,STAFF ~ (AVI VANCE APRN) Heart Score: C/O Chest Pain: No Risk Factors: Risk Factors: DM, Current or recent (<one month) smoker, HTN, HLP, family history of CAD, obesity. Risk Scores: Score 0 - 3: 2.5% MACE over next 6 weeks - Discharge Home Score 4 - 6: 20.3% MACE over next 6 weeks - Admit for Clinical Observation Score 7 - 10: 72.7% MACE over next 6 weeks - Early Invasive Strategies (AVI VANCE APRN) Course & Med Decision Making: Course & Med Decision Making Pertinent Labs and Imaging studies reviewed. (See chart for details) [] Patient resents to the emergency department for a diabetic foot ulcer to her right foot. Patient has a history of diabetic foot ulcers and has to have had her toe amputated previously. She reports that her infection was group B strep. Work-up in the ER consisted of blood work including ESR, lactic acid and blood cultures. Patient had an x-ray of her right foot to determine if osteomyelitis was present. Patient is reporting shortness of breath and she reports that whenever she had her previous foot ulcer that had group B strep and she also had pneumonia. Therefore, a chest x-ray was performed. Patient had no leukocytosis noted, anemia noted-consistent with previous lab findings, BG 143, no elevated anion gap, lactic acid 1.9, creat 1.4-consistent with previous findings, ESR pending, CRP 95.5. CXR negative. Xray of foot shows soft tissue swelling without any underlying osseous abnormality. Patient will need to be admitted for IV abx as she has an infected, necrotic foot ulcer with hx of osteomyelitis and toe amputation. I discussed patients case with Dr. Canales who advised to transfer to [facility] for surgery consultation. I discussed patients case with Dr. Felix who agreed to admit the patient under his services for an infected diabetic foot ulcer. IV abx ordered for patient, surgery consultation placed. I discussed these findings and care plan with patient and she is agreeable to transfer/admission. 1920. (AVI VANCE APRN) Dragon Disclaimer: Dragon Disclaimer: This electronic medical record was generated, in whole or in part, using a voice recognition dictation system. (AVI VANCE APRN) Departure Departure: Impression: Primary Impression: Diabetic foot ulcer Qualified Codes: E11.621 - Type 2 diabetes mellitus with foot ulcer; L97.519 - Non-pressure chronic ulcer of other part of right foot with unspecified severity Disposition: 02 SHORT TERM HOSPITAL Condition: GOOD Referrals: NON,STAFF (PCP) Dragon Disclaimer This chart was dictated in whole or in part using Voice Recognition software in a busy, high-work load, and often noisy Emergency Department environment. It may contain unintended and wholly unrecognized errors or omissions. (ISAIAH COTTRELL MD) Attending Signature Attending Signature I have participated in the care of this patient and I have reviewed and agree with all pertinent clinical information above including history, exam, and recommendations. (ISAIAH COTTRELL MD) AVI VANCE APRN Nov 05, 2021 17:21 ISAIAH COTTRELL MD Nov 07, 2021 04:12
--- NOTE | 2021-11-05 17:31 | RAD ---
Exam: Right foot 3 views INDICATION: Diabetic ulcer TECHNIQUE: Frontal, lateral and oblique views of the right foot Comparisons: None FINDINGS: Diffuse osteopenia. Diffuse soft tissue swelling particularly at the fifth digit. No acute or healed fractures. Joint spaces are well-maintained. IMPRESSION: Soft tissue swelling at the likely at the fifth digit without underlying osseous abnormality identifi ed. Electronically signed by: Aleida Dickey MD (11/05/2021 5:29 PM) CORRINE
--- NOTE | 2021-11-05 17:37 | RAD ---
EXAMINATION: XR CHEST 1V CLINICAL HISTORY: Shortness of breath. EXAM DATE/TIME: 11/05/2021 5:33 PM COMPARISON: 03/09/2020 FINDINGS: Lines, Tubes, and Devices: None. Cardiomediastinal Silhouette: Within normal limits. Lungs and Pleura: Pulmonary hypoexpansion without evidence of focal airspace consolidation or pleural effusion. Pulmonary vasculature unremarkable. Bones and Soft Tissues: Degenerative changes in the thoracic spine. IMPRESSION: No evidence of acute cardiopulmonary abnormality. Electronically signed by: Prashant Pisano DO (11/05/2021 5:35 PM) VIV
[2021-11-05 17:57] LABS: BASO # 0.1 x10^3/uL (0.0-0.2); BASO % 1 % (0-3); EOS # 0.1 x10^3/uL (0.0-0.7); EOS % 1 % (0-3); HEMATOCRIT 30.2 % (36.0-47.0); HEMOGLOBIN 9.9 g/dL (12.0-15.5); LYMPH # 0.8 x10^3/uL (1.0-4.8); LYMPH % 9 % (24-48); MEAN CORPUSCULAR HEMOGLOBIN 29 pg (25-35); MEAN CORPUSCULAR HGB CONC 33 g/dL (31-37); MEAN CORPUSCULAR VOLUME 87 fL (79-100); MONO # 0.6 x10^3/uL (0.0-1.1); MONO % 7 % (0-9); NEUT # 7.5 x10^3uL (1.8-7.7); NEUT % 82 % (31-73); PLATELET COUNT 232 x10^3/uL (140-400); RED BLOOD COUNT 3.47 x10^6/uL (3.50-5.40); RED CELL DISTRIBUTION WIDTH 13.3 % (11.5-14.5); WHITE BLOOD COUNT 9.1 x10^3/uL (4.0-11.0)
[2021-11-05 18:06] LABS: CALCIUM 8.9 mg/dL (8.5-10.1); CREATININE 1.4 mg/dL (0.6-1.0); GFR 41.6; POTASSIUM 4.9 mmol/L (3.5-5.1)
[2021-11-05 18:19] LABS: ALBUMIN 3.3 g/dL (3.4-5.0); ALBUMIN/GLOBULIN RATIO 0.7 (1.0-1.7); TOTAL BILIRUBIN 0.3 mg/dL (0.2-1.0); TOTAL PROTEIN 7.9 g/dL (6.4-8.2)
[2021-11-05 19:21] LABS: SEDIMENTATION RATE 104 (0-25)
[2021-11-05] MEDS ORDERED: PIPERACILLIN/TAZOBACTAM 4.5 GM in IV NORMAL SALINE 50ML 50 ML IV ONE (19:30)
[2021-11-05] MEDS ORDERED: VANCOMYCIN PER PHARMACY MC PRN (19:30)
[2021-11-05] MEDS ORDERED: VANCOMYCIN 2 GM in IV NORMAL SALINE 500ML 500 ML IV ONE (20:00)
[2021-11-05] MEDS ORDERED: PIPERACILLIN/TAZOBACTAM 4.5 GM VIAL IV ONE (20:08)
[2021-11-05] MEDS ORDERED: IV NORMAL SALINE 50ML 50 ML ONE (20:08)
[2021-11-05] MEDS ORDERED: ACETAMINOPHEN 500 MG TABLET PO ONE (20:15)
== END 2021-11-05 20:46 | disposition short-term general hospital (02) ==
LOC: ER 16:52
DX: E11.621 Type 2 diabetes mellitus with foot ulcer (principal); L97.519 Non-pressure chronic ulcer of other part of right foot with unspecified severity; E78.00 Pure hypercholesterolemia, unspecified; I10 Essential (primary) hypertension; E03.9 Hypothyroidism, unspecified; G89.29 Other chronic pain
CPT/HCPCS: 36415; 71045; 73630; 80053; 83605; 85025; 85651; 86140; 87040; 96360; 99285; J7030

== ENCOUNTER → 2021-11-17 | Outpatient (CLI) | payer MEDICARE, OTHER ==
[2021-11-05 17:01] VITALS: BP 141/72
[2021-11-17 12:52] LABS: BASO % 1 % (0-3); EOS # 0.2 x10^3/uL (0.0-0.7); EOS % 3 % (0-3); HEMATOCRIT 29.8 % (36.0-47.0); HEMOGLOBIN 9.8 g/dL (12.0-15.5); LYMPH # 1.8 x10^3/uL (1.0-4.8); LYMPH % 23 % (24-48); MEAN CORPUSCULAR HEMOGLOBIN 28 pg (25-35); MEAN CORPUSCULAR HGB CONC 33 g/dL (31-37); MEAN CORPUSCULAR VOLUME 86 fL (79-100); MONO # 0.3 x10^3/uL (0.0-1.1); MONO % 5 % (0-9); NEUT # 5.4 x10^3uL (1.8-7.7); NEUT % 69 % (31-73); PLATELET COUNT 319 x10^3/uL (140-400); RED BLOOD COUNT 3.47 x10^6/uL (3.50-5.40); RED CELL DISTRIBUTION WIDTH 14.2 % (11.5-14.5); WHITE BLOOD COUNT 7.8 x10^3/uL (4.0-11.0)
[2021-11-17 13:04] LABS: CREATININE 0.9 mg/dL (0.6-1.0); GFR 69.3
[2021-11-17 14:10] LABS: SEDIMENTATION RATE 55 (0-25)
== END ==
LOC: SPEC 11:25
PROVIDERS: ATTEND Internal Medicine Infectious Disease
DX: Z45.2 Encounter for adjustment and management of vascular access device (principal)
CPT/HCPCS: 36415; 82550; 82565; 84520; 85025; 85651

== ENCOUNTER → 2021-11-24 | Outpatient (CLI) | payer MEDICARE, OTHER ==
[2021-11-05 17:01] VITALS: BP 141/72
[2021-11-24 10:22] LABS: BASO # 0.1 x10^3/uL (0.0-0.2); BASO % 1 % (0-3); EOS # 0.4 x10^3/uL (0.0-0.7); EOS % 6 % (0-3); HEMATOCRIT 35.8 % (36.0-47.0); HEMOGLOBIN 11.2 g/dL (12.0-15.5); LYMPH # 2.3 x10^3/uL (1.0-4.8); LYMPH % 30 % (24-48); MEAN CORPUSCULAR HEMOGLOBIN 28 pg (25-35); MEAN CORPUSCULAR HGB CONC 31 g/dL (31-37); MEAN CORPUSCULAR VOLUME 90 fL (79-100); MONO # 0.5 x10^3/uL (0.0-1.1); MONO % 7 % (0-9); NEUT # 4.2 x10^3uL (1.8-7.7); NEUT % 57 % (31-73); PLATELET COUNT 255 x10^3/uL (140-400); RED BLOOD COUNT 3.99 x10^6/uL (3.50-5.40); RED CELL DISTRIBUTION WIDTH 14.9 % (11.5-14.5); WHITE BLOOD COUNT 7.5 x10^3/uL (4.0-11.0)
[2021-11-24 10:27] LABS: CREATININE 0.8 mg/dL (0.6-1.0); GFR 79.4
== END ==
LOC: SPEC 09:46
PROVIDERS: ATTEND Internal Medicine Infectious Disease
DX: Z45.2 Encounter for adjustment and management of vascular access device (principal)
CPT/HCPCS: 36415; 82550; 82565; 84520; 85025

== ENCOUNTER → 2021-11-27 | Outpatient (CLI) | payer MEDICARE, OTHER ==
[2021-11-05 17:01] VITALS: BP 141/72
== END ==
LOC: LAB 17:56
PROVIDERS: ATTEND Internal Medicine Infectious Disease
DX: Z45.2 Encounter for adjustment and management of vascular access device (principal)
CPT/HCPCS: 36415; 85651

== ENCOUNTER → 2021-12-04 | Outpatient (CLI) | payer MEDICARE, OTHER ==
[2021-11-05 17:01] VITALS: BP 141/72
[2021-12-04 15:10] LABS: BASO # 0.1 x10^3/uL (0.0-0.2); BASO % 1 % (0-3); EOS # 0.8 x10^3/uL (0.0-0.7); EOS % 12 % (0-3); HEMATOCRIT 34.3 % (36.0-47.0); HEMOGLOBIN 11.1 g/dL (12.0-15.5); LYMPH # 1.9 x10^3/uL (1.0-4.8); LYMPH % 29 % (24-48); MEAN CORPUSCULAR HEMOGLOBIN 28 pg (25-35); MEAN CORPUSCULAR HGB CONC 33 g/dL (31-37); MEAN CORPUSCULAR VOLUME 85 fL (79-100); MONO # 0.4 x10^3/uL (0.0-1.1); MONO % 6 % (0-9); NEUT # 3.4 x10^3uL (1.8-7.7); NEUT % 52 % (31-73); PLATELET COUNT 170 x10^3/uL (140-400); RED BLOOD COUNT 4.02 x10^6/uL (3.50-5.40); RED CELL DISTRIBUTION WIDTH 14.6 % (11.5-14.5); WHITE BLOOD COUNT 6.6 x10^3/uL (4.0-11.0)
[2021-12-04 15:47] LABS: CREATININE 0.9 mg/dL (0.6-1.0); GFR 69.3
[2021-12-04 18:25] LABS: SEDIMENTATION RATE 47 (0-25)
== END ==
LOC: SPEC 14:35
PROVIDERS: ATTEND Internal Medicine Infectious Disease
DX: Z45.2 Encounter for adjustment and management of vascular access device (principal)
CPT/HCPCS: 36415; 82550; 82565; 84520; 85025; 85651

== ENCOUNTER → 2021-12-18 | Outpatient (CLI) | payer MEDICARE, OTHER ==
[2021-11-05 17:01] VITALS: BP 141/72
[2021-12-18 15:35] LABS: BASO # 0.1 x10^3/uL (0.0-0.2); BASO % 1 % (0-3); EOS # 0.9 x10^3/uL (0.0-0.7); EOS % 11 % (0-3); HEMATOCRIT 33.9 % (36.0-47.0); LYMPH # 2.1 x10^3/uL (1.0-4.8); LYMPH % 25 % (24-48); MEAN CORPUSCULAR HEMOGLOBIN 28 pg (25-35); MEAN CORPUSCULAR HGB CONC 33 g/dL (31-37); MEAN CORPUSCULAR VOLUME 86 fL (79-100); MONO # 0.4 x10^3/uL (0.0-1.1); MONO % 5 % (0-9); NEUT # 5.1 x10^3uL (1.8-7.7); NEUT % 59 % (31-73); PLATELET COUNT 211 x10^3/uL (140-400); RED BLOOD COUNT 3.96 x10^6/uL (3.50-5.40); RED CELL DISTRIBUTION WIDTH 14.7 % (11.5-14.5); WHITE BLOOD COUNT 8.7 x10^3/uL (4.0-11.0)
[2021-12-18 16:41] LABS: SEDIMENTATION RATE 36 (0-25)
== END ==
LOC: SPEC 14:10
PROVIDERS: ATTEND Internal Medicine Infectious Disease
DX: Z45.2 Encounter for adjustment and management of vascular access device (principal)
CPT/HCPCS: 36415; 85025; 85651

== ENCOUNTER → 2021-12-19 | Outpatient (CLI) | payer MEDICARE, OTHER ==
[2021-11-05 17:01] VITALS: BP 141/72
[2021-12-19 14:27] LABS: GFR 61.4
== END ==
LOC: SPEC 14:02
PROVIDERS: ATTEND Internal Medicine Infectious Disease
DX: E11.621 Type 2 diabetes mellitus with foot ulcer (principal); L97.519 Non-pressure chronic ulcer of other part of right foot with unspecified severity
CPT/HCPCS: 36415; 82550; 82565

== ENCOUNTER → 2021-12-25 | Outpatient (CLI) | payer MEDICARE, OTHER ==
[2021-11-05 17:01] VITALS: BP 141/72
[2021-12-25 14:52] LABS: CREATININE 0.9 mg/dL (0.6-1.0); GFR 69.3
[2021-12-25 15:03] LABS: BASO % 0 % (0-3); EOS # 0.8 x10^3/uL (0.0-0.7); EOS % 9 % (0-3); HEMATOCRIT 34.4 % (36.0-47.0); HEMOGLOBIN 11.2 g/dL (12.0-15.5); LYMPH # 2.2 x10^3/uL (1.0-4.8); LYMPH % 27 % (24-48); MEAN CORPUSCULAR HEMOGLOBIN 28 pg (25-35); MEAN CORPUSCULAR HGB CONC 33 g/dL (31-37); MEAN CORPUSCULAR VOLUME 85 fL (79-100); MONO # 0.4 x10^3/uL (0.0-1.1); MONO % 5 % (0-9); NEUT # 4.9 x10^3uL (1.8-7.7); NEUT % 59 % (31-73); PLATELET COUNT 193 x10^3/uL (140-400); RED BLOOD COUNT 4.06 x10^6/uL (3.50-5.40); RED CELL DISTRIBUTION WIDTH 14.9 % (11.5-14.5); WHITE BLOOD COUNT 8.3 x10^3/uL (4.0-11.0)
[2021-12-25 16:30] LABS: SEDIMENTATION RATE 32 (0-25)
== END ==
LOC: SPEC 14:22
PROVIDERS: ATTEND Internal Medicine Infectious Disease
DX: Z45.2 Encounter for adjustment and management of vascular access device (principal)
CPT/HCPCS: 36415; 82550; 82565; 84520; 85025; 85651